=== PATIENT | female | born 1950 | race Caucasian/White ===

== ENCOUNTER 2020-09-05 14:55 | Outpatient (CLI) | payer MEDICARE, BC, OTHER, SELFPAY ==
--- NOTE | ~2020-09-05 | MM_ITS ---
EXAMINATION: MM scrn kari implant BI w rodríguez HISTORY: Screening mammogram TECHNIQUE: Craniocaudal and mediolateral oblique 3-D tomosynthesis images with implant displacement a nd synthetic 2-D images were generated. Craniocaudal and mediolateral oblique views of the breasts wi thout implant displacement were obtained using full field digital mammography. CAD analysis was submi tted and interpreted. COMPARISON: 08/26/2017 MRI breast 10/29/2016 bilateral implant digital screening mammogram 10/19/2015 diagnostic right implant digital mammogram 10/13/2015, 02/28/2014 bilateral implant digital screening mammogram examinations BREAST PARENCHYMAL COMPOSITION: There are scattered areas of fibroglandular density. FINDINGS: Status post bilateral augmentation mammoplasty. There are scattered bilateral benign calcifications. There is no evidence of suspicious mass, calcifi cation, or architectural distortion to suggest malignancy in either breast. There has been no suspici ous interval change. IMPRESSION: 1. No mammographic evidence of malignancy. 2. Recommend routine screening mammography in one year. BI-RADS Category 2: Benign finding(s). Reviewed, dictated and finalized at location A.
--- NOTE | ~2020-09-05 | DEXA_ITS ---
Bone Density Report Name: Mary Cross Age: 70 Sex: Female Ethnicity: White Date of : 1950 Indication: postmenopausal; height loss; hysterectomy; Referring Provider: MARI ESPINO Study: Bone densitometry was performed. Exam Date: September 05, 2020 Accession number: [id number] Bone Density: Region BMD T-score Z-score Classification Femoral Neck (Left) 0.803 -0.4 1.5 Normal Total Hip (Left) 1.052 0.9 2.5 Normal Total Hip Bilateral Avg 1.004 0.5 2.2 Normal Femoral Neck (Right) 0.783 -0.6 1.3 Normal Total Hip (Right) 0.956 0.1 1.8 Normal World Health Organization criteria for BMD impression classify patients as: Normal (T-score at or above -1.0), Osteopenia (T-score between -1.0 and -2.5), or Osteoporosis (T-score at or below -2.5). 10-year Fracture Risk: FRAX not reported because: All T-scores for Spine Total, Hip Total, Femoral Neck at or above -1.0 Previous Exams: Region Exam Age BMD T-score BMD Change BMD Change Date g/cm2 vs Baseline vs Previous Total Hip(Left) 09/05/2020 70 1.052 0.9 0.050(5.0%)# -0.003(-0.3%) 02/28/2014 64 1.055 0.9 0.053(5.3%)# 0.038(3.8%)# 09/25/2011 61 1.017 0.6 0.015(1.5%)# 0.015(1.5%)# 04/12/2009 59 1.002 0.5 Total Hip(Right) 09/05/2020 70 0.956 0.1 -0.046(-4.6%)# -0.091(-8.7%)* 02/28/2014 64 1.047 0.9 0.045(4.5%)# 0.011(1.0%)# 09/25/2011 61 1.037 0.8 0.034(3.4%)# 0.034(3.4%)# 04/12/2009 59 1.003 0.5 *Denotes significance at 95% confidence level, LSC for Total Hip = 0.027 g/cm2 Clinical Information Provided by Patient: Has used the following medications: HRT (i.e. estrogen/hormone therapy), Vitamin D, Calcium Has the following medical conditions: Hysterectomy Patient maximum height was 60 Menopause Age: 45 No regular weight bearing exercise Onset of menses at age 10 Number of children 0 Impression: The patient has normal bone mass. The BMD for the Total Hip(Right) decreased, changing by -8.7% since the last DXA exam. Discussion: BONE DENSITY IS ABOVE THE MINIMUM DESIRABLE LEVEL AT ALL SKELETAL SITES TESTED. This patient?s bone mineral density is above the minimum desirable level (T-score -1.0 or better) at all sites measured. The patient should follow a healthful lifestyle (good nutrition with adequate calcium and vitamin D, and appropriate weight-bearing exercise). Follow-Up: Consider repeating this study in 3 to 4 years to reassess this patient's status, or sooner if there is some new
== END 2020-09-05 14:56 | disposition home or self-care (01) ==
PROVIDERS: PCP Internal Medicine; Visit Provider Obstetrics & Gynecology Gynecology
DX: Z12.31 Encounter for screening mammogram for malignant neoplasm of breast (principal); Z78.0 Asymptomatic menopausal state
CPT/HCPCS: 77063; 77067; 77080

== ENCOUNTER 2021-06-25 00:01 | Day surgery (SDC) | payer MEDICARE, BC, SELFPAY ==
--- NOTE | 2021-06-20 12:57 | PC.NURSE ---
Report to the Outpatient Waiting Room, entrance under the green pavilion located off [facility], at time 0800 on date _06/25/21 . OR Time:1000 . - You and your visitor will be asked a series of questions to screen for COVID 19 for your protection. - A mask is required within the hospital. Preoperative COVID Testing Requirements: No COVID Test needed if: (proof is required; if not received patient will have Rapid Test prior to entry) - Patient has received COVID Vaccine at least 14 days prior to procedure date or - Patient has positive COVID test result within last 90 days of surgery date. COVID Test needed if above criteria is not met If not COVID vaccinated a COVID test must be conducted within 72 hours of surgery and patient is asked to isolate self from time of testing until procedure. You will go to the [facility] for your COVID testing. The [facility] is located at the corner of [address] [facility]. You will only be called if COVID results are positive and your surgeon may reschedule your elective surgery date. Patients may have clear liquids (water, carbonated beverages, clear teas, apple juice) until 3 hours prior to surgery with a maximum of 20 ounces. - No food from midnight until time of surgery - Infants may have breast milk until 4 hours before surgery, infant formula 6 hours prior to surgery. - Children will be allowed to drink immediately following surgery. If applicable, please bring a bottle or sippy cup to assist with drinking. Juice, water, soda, and popsicles are readily available. For infants on formula, please bring formula the day of surgery. Pacifiers are allowed. Take the following medications with a SIP of water the morning of surgery: __INHALER,BUPROPION,PAIN PILL Medications to discontinue per physician ____ASPIRIN 7 DAYS PRE OP , Date to take last dose____06/17/21 Please no make-up, nail kosovan, hairspray, perfume, deodorant, or body powder the day of surgery. No jewelry (including any body piercings) or valuables the day of surgery, leave them at home. Please take a shower or bath the night before, or the morning of, surgery with an antibacterial soap. Wear comfortable, loose fitting clothing. Children are encouraged to wear pajamas. - Jewelry must be removed prior to entering the operating room. Rings and piercings that are not removed may be cut off. - The hospital will not accept responsibility for valuables. - Please leave all valuables, including medications, at home the day of surgery. If you are going home after surgery, a licensed courier delivery driver must drive you home. - NO public transportation without another adult. - We recommend that an adult stay with you for 24 hours following discharge. - We also recommend that you do not drive, make important decision, drink alcoholic beverages, or take any drugs that were not prescribed by your health care provider for at least 24 hours after your discharge time. For Pediatric surgeries, we recommend two adults accompany the child home (only one inside the building at this time). One visitor will be allowed to accompany the patient into the hospital. Patients visitor will be instructed to remain with patient at all times or leave the building. We will allow the visitor to come back to the postoperative area when patient is ready. Follow any additional instructions given to you from your surgeon. Telephone instructions given to ___PATIENT and asked if any additional questions and then verbalized understanding. Patient advised to call surgeon office or pre surgery nurse liaison [phone] if any additional questions.
[2021-06-20 13:06] VITALS: BMI 26.4
--- NOTE | 2021-06-23 11:56 | PM.IMHP ---
H&P: HPI History of Present Illness Date/Time: 06/23/21 11:56 71-year-old woman with stress incontinence. I will be performing a urethral sling at the time of an a and P repair by her senior functional analyst Chief Complaint: stress incontinence Review of Systems Review of Systems: All systems reviewed & are unremarkable except as noted in HPI and below PMFSH Past Medical History Medical History (Updated 06/23/21 @ 11:59 by David Cross MD) Acute insomnia Anemia Chronic GERD Chronic insomnia Chronic low back pain Exposure to TB High cholesterol Lumbago Microcytic anemia Pre-diabetes Surgical History Surgical History History of back surgery History of kidney surgery History of neck surgery Hx of tonsillectomy Family History Family History Mother Family history of diabetes mellitus in first degree relative Family history of malignant neoplasm of cervix Father Family history of malignant neoplasm of kidney Other Family history of cardiovascular disease Social History Social History Smoking packs per day: 1 Smoking cigarettes per day: 20.0 Years smoked: 7 Smoking pack-years: 7.00 Smoking status: Former smoker Tobacco type: cigarettes Second hand tobacco smoke exposure: Yes Smoking end date: 03/17/87 Alcohol intake: former Substance use: never Substance use type: does not use Spiritual care concerns: No Meds Home Medications and Allergies Home Medications Medication Instructions Recorded Confirmed Type hydrocodone 10 mg-acetaminophen 1 tablet PO Q6H PRN 02/02/19 06/20/21 History 325 mg tablet bupropion HCl 150 mg tablet,12 hr 150 mg PO QAM 03/24/19 06/20/21 History sustained-release candesartan 32 mg tablet See Rx Instructions .ROUTE 09/21/20 06/20/21 Rx .COMPLEX #90 tablet albuterol sulfate 90 mcg/actuation 2 inh INHALATION Q4H #18 g 12/25/20 06/20/21 Rx aerosol inhaler montelukast 10 mg tablet 10 mg PO DAILY #90 tablet 12/25/20 06/20/21 Rx rosuvastatin 10 mg tablet 10 mg PO .every other day #45 12/25/20 06/20/21 Rx tablet lidocaine 5 % topical patch See Rx Instructions .ROUTE 01/01/21 06/20/21 Rx .COMPLEX #90 patch escitalopram oxalate 10 mg tablet 10 mg PO HS 01/11/21 06/20/21 History estradiol 0.1 mg/24 hr weekly 1 patch TRANSDERMAL WEEKLY 01/11/21 06/20/21 History transdermal patch zolpidem 12.5 mg tablet,extended 12.5 mg PO HS 01/11/21 06/20/21 History release,multiphase bupropion HCl 300 mg 24 hr tablet, 300 mg PO QAM #90 tablet 01/12/21 06/20/21 Rx extended release cetirizine 5 mg-pseudoephedrine ER 1 tablet PO Q12H #180 tablet 05/21/21 06/20/21 Rx 120 mg tablet,extended release,12hr chlordiazepoxide HCl 10 mg capsule 10 mg PO Q8H PRN #270 cap 05/21/21 06/20/21 Rx aspirin 81 mg tablet,delayed 81 mg PO DAILY #90 tablet 06/18/21 06/20/21 Rx release omeprazole 40 mg capsule,delayed 40 mg PO DAILY #90 cap 06/18/21 06/20/21 Rx release potassium chloride 10 mEq 10 meq PO BID #180 tablet 06/18/21 06/20/21 Rx tablet,extended release hydrochlorothiazide 25 mg tablet 25 mg PO DAILY #90 tablet 06/19/21 06/20/21 Rx fluticasone propion-salmeterol 1 inh INHALATION BID PRN 06/20/21 06/20/21 History [Advair Diskus] fluticasone propionate 2 spray NASAL DAILY PRN 06/20/21 06/20/21 History Allergies Allergy/AdvReac Type Severity Reaction Status Date / Time Penicillins AdvReac Unknown Hives Verified 06/20/21 12:39 YELLOW PINE Allergy Mild ASTHMA Uncoded 06/20/21 12:39 PROBLEMS Cream Cheese Allergy Unknown HIVES Uncoded 06/20/21 12:39 Exam Narrative: alert orient x3 no acute distress normal breathing cystocele and rectocele noted urethral mobility Assessment and Plan Assessment and plan (1) PAVAN (stress urinary incontinence, female): Code
[2021-06-25] VITALS (8 sets, daily range): BP systolic 85–152; BP diastolic 40–61; PULSE 65–96; RESP 12–19; TEMP 35.8–36.6; O2SAT 96–100
--- NOTE | 2021-06-25 07:15 | WPDHPUPDATE1 ---
History and Physical Update Update Date/Time: 06/25/21 07:15 History and Physical has been reviewed, including an updated exam of the patient. There are NO changes in the patient's condition. Risks, benefits, and alternatives have been discussed and questions answered. Patient agrees to proceed with procedure.
--- NOTE | 2021-06-25 07:21 | WPDHPUPDATE1 ---
History and Physical Update Update Date/Time: 06/25/21 07:21 History and Physical has been reviewed, including an updated exam of the patient. There are NO changes in the patient's condition. Risks, benefits, and alternatives have been discussed and questions answered. Patient agrees to proceed with procedure.
--- NOTE | 2021-06-25 07:21 | PM.IMHP ---
H&P: HPI History of Present Illness Date/Time: 06/25/21 07:21 Chief Complaint: Cystocele, rectocele, genuine stress incontinence Narrative: The patient is a 71-year-old A1 admitted for anterior and posterior vaginal repair secondary to symptomatic cystocele and rectocele. The patient attempted pessary use however this revealed genuine stress incontinence and the patient had leaking all the time. Removal of the pessary relief the leaking however the cystocele and rectocele are symptomatic with constant pelvic pressure. Due to the general stress incontinence being revealed by pessary use the patient was referred to Urology. Dr. Cross has evaluated the patient and plans to perform a sling. Risks of surgery including infection, bleeding, injury to internal organs (especially bowel, bladder, and ureters), deep vein thrombosis, general anesthesia, failure of repair, and mesh complications were reviewed. Patient voices understanding and agrees to proceed. Review of Systems Review of Systems: As per history of present illness Constitutional: Constitutional: Reports fatigue and Reports night sweats ENT: Reports other (A fever) Gastrointestinal: Gastrointestinal: Reports diarrhea Musculoskeletal: Musculoskeletal: Reports arthralgias Psychiatric: Psychiatric: Reports anxiety PMFSH Past Medical History Medical History (Updated 06/25/21 @ 07:36 by Urmila Sorensen MD) Acute insomnia Anemia Anxiety and depression Benign essential hypertension Chronic GERD Chronic insomnia Chronic low back pain Exposure to TB Gastric ulcer with obstruction Surgery 2009 High cholesterol Lumbago Microcytic anemia Pre-diabetes Reactive airway disease Surgical History Surgical History (Updated 06/25/21 @ 07:35 by Urmila Sorensen MD) History of back surgery Multiple History of cholecystectomy History of hysterectomy And bilateral salpingo-oophorectomy History of kidney surgery History of mastectomy Bilateral for fibrocystic changes 1987 followed by implants Implants changed in 2017 History of neck surgery Multiple procedures Hx of tonsillectomy Status post tubal ligation Family History Family History Mother Family history of diabetes mellitus in first degree relative Family history of malignant neoplasm of cervix Father Family history of malignant neoplasm of kidney Other Family history of cardiovascular disease Social History Social History Smoking packs per day: 1 Smoking cigarettes per day: 20.0 Years smoked: 7 Smoking pack-years: 7.00 Smoking status: Former smoker Tobacco type: cigarettes Second hand tobacco smoke exposure: Yes Smoking end date: 03/17/87 Alcohol intake: former Substance use: never Substance use type: does not use Living arrangements: with family Spiritual care concerns: No Meds Home Medications and Allergies Home Medications Medication Instructions Recorded Confirmed Type hydrocodone 10 mg-acetaminophen 1 tablet PO Q6H PRN 02/02/19 06/20/21 History 325 mg tablet bupropion HCl 150 mg tablet,12 hr 150 mg PO QAM 03/24/19 06/20/21 History sustained-release candesartan 32 mg tablet See Rx Instructions .ROUTE 09/21/20 06/20/21 Rx .COMPLEX #90 tablet albuterol sulfate 90 mcg/actuation 2 inh INHALATION Q4H #18 g 12/25/20 06/20/21 Rx aerosol inhaler montelukast 10 mg tablet 10 mg PO DAILY #90 tablet 12/25/20 06/20/21 Rx rosuvastatin 10 mg tablet 10 mg PO .every other day #45 12/25/20 06/20/21 Rx tablet lidocaine 5 % topical patch See Rx Instructions .ROUTE 01/01/21 06/20/21 Rx .COMPLEX #90 patch escitalopram oxalate 10 mg tablet 10 mg PO HS 01/11/21 06/20/21 History estradiol 0.1 mg/24 hr weekly 1 patch TRANSDERMAL WEEKLY 01/11/21 06/20/21 History transdermal patch zolpidem 12.5 mg tablet,extended 12.5 mg PO HS
--- NOTE | 2021-06-25 09:06 | WPDANESEPPF ---
Anes - Initial Pre Proc Eval Procedure: Operation Date: 06/25/21 10:00 Proposed Procedures p Anterior and Posterior Vaginal Repair - Urmila Sorensen MD s Urethral Sling - David Cross MD Date/Time: 06/25/21 09:06 Surgeon: Urmila Sorensen MD Pre Op Diagnosis: cystocele, rectocele, stress incont Patient Data Age: 71 Gender: F Height: 1.52 m Weight: 61.25 kg Allergies Allergy/AdvReac Type Severity Reaction Status Date / Time Penicillins AdvReac Unknown Hives Verified 06/25/21 08:25 YELLOW PINE Allergy Mild ASTHMA Uncoded 06/25/21 08:25 PROBLEMS Cream Cheese Allergy Unknown HIVES Uncoded 06/25/21 08:25 Home Medications Medication Instructions Recorded Confirmed Type hydrocodone 10 mg-acetaminophen 1 tablet PO Q6H PRN 02/02/19 06/20/21 History 325 mg tablet bupropion HCl 150 mg tablet,12 hr 150 mg PO QAM 03/24/19 06/20/21 History sustained-release candesartan 32 mg tablet See Rx Instructions .ROUTE 09/21/20 06/20/21 Rx .COMPLEX #90 tablet albuterol sulfate 90 mcg/actuation 2 inh INHALATION Q4H #18 g 12/25/20 06/20/21 Rx aerosol inhaler montelukast 10 mg tablet 10 mg PO DAILY #90 tablet 12/25/20 06/20/21 Rx rosuvastatin 10 mg tablet 10 mg PO .every other day #45 12/25/20 06/20/21 Rx tablet lidocaine 5 % topical patch See Rx Instructions .ROUTE 01/01/21 06/20/21 Rx .COMPLEX #90 patch escitalopram oxalate 10 mg tablet 10 mg PO HS 01/11/21 06/20/21 History estradiol 0.1 mg/24 hr weekly 1 patch TRANSDERMAL WEEKLY 01/11/21 06/20/21 History transdermal patch zolpidem 12.5 mg tablet,extended 12.5 mg PO HS 01/11/21 06/20/21 History release,multiphase bupropion HCl 300 mg 24 hr tablet, 300 mg PO QAM #90 tablet 01/12/21 06/20/21 Rx extended release cetirizine 5 mg-pseudoephedrine ER 1 tablet PO Q12H #180 tablet 05/21/21 06/20/21 Rx 120 mg tablet,extended release,12hr chlordiazepoxide HCl 10 mg capsule 10 mg PO Q8H PRN #270 cap 05/21/21 06/20/21 Rx aspirin 81 mg tablet,delayed 81 mg PO DAILY #90 tablet 06/18/21 06/20/21 Rx release omeprazole 40 mg capsule,delayed 40 mg PO DAILY #90 cap 06/18/21 06/20/21 Rx release potassium chloride 10 mEq 10 meq PO BID #180 tablet 06/18/21 06/20/21 Rx tablet,extended release hydrochlorothiazide 25 mg tablet 25 mg PO DAILY #90 tablet 06/19/21 06/20/21 Rx fluticasone propion-salmeterol 1 inh INHALATION BID PRN 06/20/21 06/20/21 History [Advair Diskus] fluticasone propionate 2 spray NASAL DAILY PRN 06/20/21 06/20/21 History Patient hx anesthesia problems: none Family hx anesthesia problems: none Results Review: All pre-operative results and documents have been reviewed as part of the pre-operative evaluation. [facility] Past Medical History Medical History (Updated 06/25/21 @ 07:36 by Urmila Sorensen MD) Acute insomnia Anemia Anxiety and depression Benign essential hypertension Chronic GERD Chronic insomnia Chronic low back pain Exposure to TB Gastric ulcer with obstruction Surgery 2009 High cholesterol Lumbago Microcytic anemia Pre-diabetes Reactive airway disease Surgical History Surgical History (Updated 06/25/21 @ 07:35 by Urmila Sorensen MD) History of back surgery Multiple History of cholecystectomy History of hysterectomy And bilateral salpingo-oophorectomy History of kidney surgery History of mastectomy Bilateral for fibrocystic changes 1987 followed by implants Implants changed in 2017 History of neck surgery Multiple procedures Hx of tonsillectomy Status post tubal ligation Family History Family History Mother Family history of diabetes mellitus in first degree relative Family history of malignant neoplasm of cervix Father Family history of malignant neoplasm of kidney Other Family history of cardiovascular disease Social History Social History [place]
[2021-06-25] MEDS: LACTATED RINGERS 1,000 ML 30 ML IV CONT ×2 (09:35→12:44)
[2021-06-25] MEDS: ACETAMINOPHEN 500 MG TABLET 1000 MG PO (09:38)
[2021-06-25] MEDS: KETOROLAC 15 MG/ML VIAL (*BKC) IV PUSH (09:40)
[2021-06-25] MEDS: ceFAZolin 2 GM/D5W 50 ML 2 GM/50 ML BAG IVPB (09:55)
[2021-06-25] MEDS: LIDO 1%/EPINEPHRINE 1:100,000 50 ML VIAL 10 ML INFILTRATE (09:55)
--- NOTE | 2021-06-25 11:10 | P.OP_ITS ---
Procedure Note - Detailed Date of Procedure 06/25/21 Pre-op Diagnosis cystocele, rectocele, stress incontinence Post-op Diagnosis Same (Plus enterocele) Procedure Performed Anterior and posterior (with repair of enterocele) vaginal repair Surgeon Urmila Sorensen MD Anesthesia General Findings Bladder is approximately 3cm past the introitus at rest under anesthesia. Third degree rectocele Description of Procedure The patient is taken to the operating room and placed under anesthesia in the dorsal lithotomy position. She was prepped and draped in the usual sterile fashion. The Shikha retractor was placed anteriorly. The hymen was grasped at 5 and 7:00 a.m. with Allis clamps. The intervening tissue was incised with a scalpel. A triangular portion of perineum was excised using a scalpel. The midline of the vaginal mucosa is injected over the rectocele with 1% lidocaine with epinephrine. The vaginal mucosa was then dissected off the midline of the rectocele using Metzenbaum scissors. The edges are incised and grasped with Allis clamps as the dissection progressed. Once the apex was reached a single Allis clamp was placed in the midline. The lateral dissection is performed using sharp and blunt dissection. The rectocele was reduced using 0 Ethibond interrupted horizontal mattress sutures. Once the rectocele was fully reduced the excess vaginal mucosa was excised using Metzenbaum spine. The vaginal mucosa was closed using 0 Vicryl in a running lock stitch until the hymen was reached then the stitch was placed under the hymenal ring. The same suture was used to close the deep perineal tissues pulling the perineal body back together and then continuing in a subcuticular manner until the skin is closed. The short weighted speculum was then placed posteriorly and a Shikha retractor was removed. The base of the cystocele is grasped with Allis clamps at 5 and 7:00 a.m.. The intervening tissue was incised with a scalpel. The midline of the cystocele is injected with 1% lidocaine with epinephrine. The midline of the di ssection of the vaginal mucosa off the cystocele was performed using Metzenbaum scissors. The tissue was incised in the midline and the edges grasped with Allis clamps until the apex was reached. A single clamp was placed at the apex. Lateral dissection is performed using sharp and blunt dissection. The cystocele was then reduced using 0 Ethibond horizontal mattress interrupted sutures. Once the cystocele was fully reduced the excess vaginal mucosa is excised. The vaginal mucosa was closed using 0 Vicryl in a running locked fashion. Two digit exam is able to be performed at the end of the case. The case was then turned over to Dr. Cross for the sling. Please see his dictation for separate details. Estimated Blood Loss 25 Drains Yes (Cuellar catheter) Packing Yes (Vaginal) Pathology None sent Complications No immediate complications Condition Stable Disposition PACU
--- NOTE | 2021-06-25 11:55 | P.OP_ITS ---
Procedure Note - Detailed Date of Procedure 06/25/21 Pre-op Diagnosis Stress incontinence Post-op Diagnosis Same Procedure Performed mid urethral sling cystoscopy Surgeon David Cross MD Indications This is a female with confirm stress urinary incontinence. She desires surgical correction. She understands the risks of bleeding, infection, injury to the urinary tract, vaginal mesh extrusion, urinary tract mesh erosion, lack of cure of stress incontinence, obstructive voiding requiring a secondary procedure, hip and leg pain, dyspareunia, inability to improve overactive bladder symptoms. She agrees to proceed. We are doing this in conjunction with and cystocele rectocele repair by her supervisor plastic sheets Description of Procedure I came into the operating room after her cystocele rectocele repair. She was prepped and draped in a sterile fashion. A time-out performed. I marked out the site of the inner thigh incisions. I anesthetized the skin and made those incisions. I anesthetized the anterior vaginal wall over the mid urethra. I made a 1 cm incision. I dissected out laterally taking great care not to injure the refilled vaginal wall. I passed the helical trocars. First on the left. Then on the right. I did this from the thigh incision towards the vaginal incision. The sling was connected to the trocars and brought out through the thigh incision. I tensioned the sling appropriately. I cut and the plastic sheaths. I then closed the incision with 2 0 Vicryl. I did an additional [id number] 2-0 Vicryl on the rectocele area due to some oozing which was noted. I placed vaginal packing soaked in Premarin. On cystoscopy there is no tumors or surgical artifact. There was no surgical artifact in the urethra. Ureter patency was documented by placing a Bentson wire up both ureters. I cut the excess sling material. Close incisions with glue. She was awakened and transferred to the PACU in stable condition. A Cuellar catheter was left indwelling Implants Urethral sling Estimated Blood Loss 25 Drains No Packing No Pathology None sent Complications No immediate complications Condition Stable Disposition PACU
--- NOTE | 2021-06-25 13:05 | PC.NURSE ---
This patient, Mary Cross, was received from PACU on 06/25/21 at 1305. Patient/family oriented to unit policies and routines
[2021-06-25] MEDS: DEXTROSE 5%/0.45% SOD CHL 1,000 ML 125 ML IV CONT ×2 (13:48→22:46)
[2021-06-25] MEDS: HYDROcodone/acetaminophen (*CRX) 10-325 MG TABLET 1 TAB PO ×3 (14:09→22:41)
[2021-06-25] MEDS: ZOLPIDEM TARTRATE (*CRX) 5 MG TABLET 10 MG PO (22:40)
[2021-06-25] MEDS: IBUPROFEN 600 MG TABLET PO (22:40)
[2021-06-26] VITALS: BP 90/42; PULSE 83; RESP 18; TEMP 37; O2SAT 100
[2021-06-26 04:40] VITALS: BP 99/43; PULSE 88; RESP 18; TEMP 36.8; O2SAT 98
[2021-06-26] MEDS: IBUPROFEN 600 MG TABLET PO ×2 (04:49→11:58)
[2021-06-26] MEDS: HYDROcodone/acetaminophen (*CRX) 10-325 MG TABLET 1 TAB PO (04:50)
[2021-06-26 07:45] VITALS: BP 98/56; PULSE 73; RESP 16; TEMP 36.4; O2SAT 100
[2021-06-26 08:00] VITALS: PULSE 73; RESP 16; O2SAT 100
--- NOTE | 2021-06-26 08:08 | PM.GYNPNOP ---
MANAGER COPY - A/P Postoperative Procedures: Procedures Operation Date: 06/25/21 10:00 Actual Procedure Side Surgeon p Anterior and Posterior Vaginal Repair Not Applicable Urmila Sorensen MD s Urethral Sling Not Applicable David Cross MD Postoperative day: 1 Postoperative status: doing well Postoperative plan: routine post-op care and discharge (this afternoon) Time Spent With Patient Time: Total time spent is greater than 50% in coordination of care (as documented) at patient's floor/unit and/or counseling patient: Time with patient: less than 15 minutes MANAGER COPY- PN:Subj Post-Op Subjective Date/time seen: 06/26/21 08:08 Subjective: patient has no complaints and pain is well controlled Exam Narrative: abdomen soft, nt vag-no packing, minimal bleeding MANAGER COPY - PN: Obj Data Vital Signs Vital Signs: Vital Signs - 24 hr 06/25/21 08:17 06/25/21 12:00 06/25/21 12:15 Temperature 97.3 F L 97.0 F L Pulse Rate 96 79 67 Respiratory Rate 18 19 12 Blood Pressure 152/61 H 85/56 L 90/40 L Pulse Oximetry 96 100 100 06/25/21 12:30 06/25/21 12:45 06/25/21 13:15 Temperature 96.4 F L Pulse Rate 65 65 65 Respiratory Rate 16 16 18 Blood Pressure 105/45 L 99/45 L 97/44 L Pulse Oximetry 100 100 100 06/25/21 15:45 06/25/21 20:00 06/26/21 00:00 Temperature 97.9 F 97.3 F L 98.6 F Pulse Rate 78 85 83 Respiratory Rate 16 18 18 Blood Pressure 99/51 L 91/44 L 90/42 L Pulse Oximetry 97 100 100 06/26/21 04:40 Temperature 98.2 F Pulse Rate 88 Respiratory Rate 18 Blood Pressure 99/43 L Pulse Oximetry 98 Intake/Output Intake/Output: Intake & Output 06/23/21 06/24/21 06/25/21 06/26/21 23:59 23:59 23:59 23:59 Intake Total 2080 650 Output Total 50 700 Balance 2030 -50 Meds/Results Medications: Active Medications Generic Name Dose Route Start Last Admin Trade Name Freq PRN Reason Stop Dose Admin Hydrocodone Bitart/Acetaminophen 1 tab 06/25/21 12:55 Hydrocodone/Acetaminophen (*Crx) 5-325 Mg Tablet PO Q3H PRN Pain Rated 5 or Less Hydrocodone Bitart/Acetaminophen 1 tab 06/25/21 12:55 06/26/21 04:50 Hydrocodone/Acetaminophen (*Crx) 10-325 Mg Tablet PO 1 tab Q3H PRN Administration Pain Rated 6 or Greater Albuterol 2 puff 06/25/21 16:00 Albuterol Sulfate (*Sp) Aerosol 1 Puff INHALATION Q4HRT [facility] Bupropion HCl 450 mg 06/26/21 09:00 Bupropion Hcl Xl (24 Hr) 150 Mg Tabcr PO QAM JERMAINE Chlordiazepoxide HCl 10 mg 06/25/21 12:55 Chlordiazepoxide (*Crx) 10 Mg Capsule PO Q8H PRN anxiety Docusate Sodium 100 mg 06/26/21 09:00 Docusate Sodium 100 Mg Capsule PO DAILY JERMAINE Fentanyl Citrate 25 mcg 06/25/21 09:10 Fentanyl Citrate Inj (*Crx) 100 Mcg/2 Ml Vial IV PUSH Q2M PRN Pain Fluticasone Propionate 2 spray 06/25/21 12:55 Fluticasone Propionate 0.05% Na Spr 16 Gm Btl (*Bkc) NASAL DAILY PRN Allergy Symptoms Hydrochlorothiazide 25 mg 06/26/21 09:00 Hydrochlorothiazide 25 Mg Tablet PO DAILY JERMAINE Lactated Ringer's 1,000 mls @ 30 mls/hr 06/25/21 08:05 06/25/21 12:43 Lr - Lactated Ringers Iv IV CONT Infused .Q24H JERMAINE Infusion Lactated Ringer's 1,000 mls @ 30 mls/hr 06/25/21 09:10 06/25/21 12:50 Lr - Lactated Ringers Iv IV CONT Infused .Q24H JERMAINE Infusion Dextrose/Sodium Chloride 1,000 mls @ 125 mls/hr 06/25/21 12:55 06/26/21 03:01 Dextrose 5% Sodium Chloride 0.45% IV CONT 0 mls/hr .Q8H JERMAINE Infusion Ibuprofen 600 mg 06/25/21 12:55 06/26/21 04:49 Ibuprofen 600 Mg Tablet PO 600 mg Q6H PRN Administration Cramping Loratadine/Pseudoephedrine Sulfate 1 tab 06/26/21 09:00 Loratadine/Pseudoephedrine (*Crx) 10/240 Mg Tablet Er 24 Hr PO QAM JERMAINE Montelukast Sodium 10 mg 06/26/21 09:00 Montelukast Sodium 10 Mg Tablet PO DAILY JERMAINE Ondansetron HCl 4 mg 06/25/21 09:10 Ondansetron Inj 4 Mg/2 Ml Vial IV PUSH ONCE PRN Nause
--- NOTE | 2021-06-26 08:09 | PM.DS ---
DS: Admitting Diagnosis Discharge Date 06/26/21 Admitting Diagnosis cystocele with rectocele; GSI DS: Discharge Diagnosis Discharge Diagnosis (1) Cystocele with rectocele: Code(s): N81.10 - Cystocele, unspecified; N81.6 - Rectocele Status: Acute Assessment and Plan: s/p A&P repair (2) PAVAN (stress urinary incontinence, female): Code(s): N39.3 - Stress incontinence (female) (male) Status: Acute Assessment and Plan: s/p midurethral sling DS: Summary Hospital Course Hospital Course: At time of dc patient is tolerating diet, voiding, and abmulating Status at Discharge Functional status at discharge: independent ambulation Overall status at discharge: patient is progressing back to baseline Time Spent with Patient Time attestation: Total time spent providing and/or coordinating discharge services: Discharge Plan Discharge Patient Disposition: Home, Self-Care Discharge Medications: Continued hydrocodone-acetaminophen 10-325 mg tablet 1 tablet PO Q6H PRN (Reason: Pain) RF: 0 chlordiazepoxide HCl 10 mg capsule 10 mg PO Q8H PRN (Reason: anxiety) Qty: 270 RF: 0 cetirizine-pseudoephedrine [Zyrtec-D] 5-120 mg tablet extended release 12 hr 1 tablet PO Q12H Qty: 180 RF: 1 bupropion HCl [Wellbutrin SR] 150 mg tablet sustained-release 12 hr 150 mg PO QAM RF: 0 fluticasone propion-salmeterol [Advair Diskus] 250-50 mcg/dose blister with device 1 inh INHALATION BID PRN (Reason: Shortness Of Breath) RF: 0 fluticasone propionate 50 mcg/actuation spray,suspension 2 spray NASAL DAILY PRN (Reason: Allergy Symptoms) RF: 0 candesartan 32 mg tablet See Rx Instructions .ROUTE .COMPLEX Qty: 90 RF: 3 montelukast [Singulair] 10 mg tablet 10 mg PO DAILY Qty: 90 RF: 1 albuterol sulfate [ProAir HFA] 90 mcg/actuation HFA aerosol inhaler 2 inh INHALATION Q4H Qty: 18 RF: 3 rosuvastatin [Crestor] 10 mg tablet 10 mg PO .every other day Qty: 45 RF: 2 lidocaine 5 % adhesive patch,medicated See Rx Instructions .ROUTE .COMPLEX Qty: 90 RF: 1 zolpidem [Ambien CR] 12.5 mg tablet,ext release multiphase 12.5 mg PO HS RF: 0 estradiol [Climara] 0.1 mg/24 hr patch weekly 1 patch transdermal WEEKLY RF: 0 escitalopram oxalate 10 mg tablet 10 mg PO HS RF: 0 bupropion HCl 300 mg tablet extended release 24 hr 300 mg PO QAM Qty: 90 RF: 0 aspirin 81 mg tablet,delayed release (DR/EC) 81 mg PO DAILY Qty: 90 RF: 1 omeprazole 40 mg capsule,delayed release(DR/EC) 40 mg PO DAILY Qty: 90 RF: 2 potassium chloride 10 mEq tablet extended release 10 meq PO BID Qty: 180 RF: 3 hydrochlorothiazide 25 mg tablet 25 mg PO DAILY Qty: 90 RF: 1
[2021-06-26] MEDS: HYDROcodone/acetaminophen (*CRX) 5-325 MG TABLET 1 TAB PO (11:57)
== END 2021-06-26 13:00 | disposition home or self-care (01) ==
LOC: ANHSURGERY 07:58 → ANHOB2 18:19
PROVIDERS: Urology; PCP Internal Medicine; Visit Provider Obstetrics & Gynecology Gynecology
PROC: (CPT 57260; principal; 2021-06-25 10:00)
PROC: (CPT 57288; 2021-06-25 10:00)
DX: N81.10 Cystocele, unspecified (principal); N81.6 Rectocele; N81.5 Vaginal enterocele; N39.3 Stress incontinence (female) (male); I10 Essential (primary) hypertension; E78.00 Pure hypercholesterolemia, unspecified; F41.8 Other specified anxiety disorders; D64.9 Anemia, unspecified; J45.909 Unspecified asthma, uncomplicated; K21.9 Gastro-esophageal reflux disease without esophagitis; Z87.11 Personal history of peptic ulcer disease; R73.03 Prediabetes; Z87.891 Personal history of nicotine dependence; Z79.51 Long term (current) use of inhaled steroids; Z79.52 Long term (current) use of systemic steroids
CPT/HCPCS: 57288; 57265; 99199; A9270; C1758; C1769; C1771; J0690; J1885; J2704; J3010; J7120

== ENCOUNTER 2022-10-20 13:47 | Outpatient (CLI) | payer MEDICARE, BC, OTHER, SELFPAY ==
--- NOTE | ~2022-10-20 | MR_ITS ---
MRI of the brain Clinical History: Amnesia Technique: Axial and sagittal T1-weighted images were acquired. These were followed by axial T2-weigh shaye, diffusion weighted, gradient, and FLAIR images. Findings: There is no acute infarct, intracranial hemorrhage or mass lesion. There are mild to modera te chronic white matter changes in the periventricular white matter bilaterally. Ventricles and subarachnoid spaces are mildly dilated. Orbits are unremarkable. Paranasal sinuses and mastoid air cells are clear. Major intracranial flow voids are intact. Sagittal midline structures are intact. IMPRESSION: No acute infarct, intracranial hemorrhage, mass lesion. Mild to moderate chronic microvascular ischemic changes and mild generalized atrophy. Reviewed, dictated and finalized at location . IMPRESSION: No acute infarct, intracranial hemorrhage, mass lesion. Mild to moderate chronic microvascular ischemic changes and mild generalized at rophy.
== END 2022-10-20 13:48 | disposition home or self-care (01) ==
PROVIDERS: Visit Provider Nurse Practitioner
DX: R41.3 Other amnesia (principal); R94.02 Abnormal brain scan
CPT/HCPCS: 70551

== ENCOUNTER 2023-06-20 14:42 | Outpatient (CLI) | payer MEDICARE, BC, OTHER, SELFPAY ==
--- NOTE | ~2023-06-20 | MM_ITS ---
EXAMINATION: MM screening kari BI w rodríguez HISTORY: Screening mammogram TECHNIQUE: Craniocaudal and mediolateral oblique 3-D tomosynthesis images were obtained and synthetic 2-D images were generated. CAD analysis was submitted and interpreted. COMPARISON: 09/05/2020 bilateral implant screening mammogram BREAST PARENCHYMAL COMPOSITION: There are scattered areas of fibroglandular density. FINDINGS: Status post bilateral augmentation mammoplasty. Scattered bilateral benign calcifications. There is no evidence of suspicious mass, calcification, or architectural distortion to suggest malign yolette in either breast. There has been no suspicious interval change. IMPRESSION: 1. No mammographic evidence of malignancy. 2. Recommend routine screening mammography in one year. BI-RADS Category 2: Benign finding(s). Reviewed, dictated and finalized at location B.
== END 2023-06-20 14:43 | disposition home or self-care (01) ==
LOC: ANHIMG 14:45
PROVIDERS: PCP Nurse Practitioner; Visit Provider Obstetrics & Gynecology Gynecology
DX: Z12.31 Encounter for screening mammogram for malignant neoplasm of breast (principal)
CPT/HCPCS: 77063; 77067